=== PATIENT | male | born 1985 | race African-American/Black ===

== ENCOUNTER 2016-10-19 06:03 | Emergency (ER) | payer OTHER ==
[~2016-10-19] VITALS: Ht 177.8 cm; Wt 83.0 kg
[2016-10-19 06:48] VITALS: BP 137/90
== END 2016-10-19 06:48 | disposition home or self-care (01) ==
LOC: ED 06:03
DX: J20.8 Acute bronchitis due to other specified organisms (principal)

== ENCOUNTER 2017-03-29 01:37 | Emergency (ER) | payer MEDICAID ==
[2017-03-29 01:54] VITALS: BP 138/88
== END 2017-03-29 02:23 | disposition home or self-care (01) ==
LOC: ED 01:37
DX: R05 Cough (principal); R51 Headache; Z88.0 Allergy status to penicillin; F17.200 Nicotine dependence, unspecified, uncomplicated

== ENCOUNTER 2017-04-02 03:57 | Emergency (ER) | payer SELFPAY ==
[2017-04-02 04:38] VITALS: BP 122/94
== END 2017-04-02 04:38 | disposition home or self-care (01) ==
LOC: ED 03:57
DX: R05 Cough (principal); R07.89 Other chest pain; F17.200 Nicotine dependence, unspecified, uncomplicated; Z88.0 Allergy status to penicillin

== ENCOUNTER 2017-06-08 04:44 | Emergency (ER) | payer OTHER ==
[2017-06-08 05:52] VITALS: BP 124/75
== END 2017-06-08 05:52 | disposition home or self-care (01) ==
LOC: ED 04:44
DX: J20.9 Acute bronchitis, unspecified (principal); Z88.0 Allergy status to penicillin; F17.210 Nicotine dependence, cigarettes, uncomplicated
CPT/HCPCS: 99406